=== PATIENT | male | born 1955 | race African-American/Black ===

== ENCOUNTER 2022-07-28 10:03 | Inpatient (IN) | payer MEDICARE, OTHER ==
[~2022-07-28] VITALS: Ht 188 cm; Wt 133.8 kg
[2022-07-28 13:37] LABS: BASOPHILS % 0.1 % (0.0-2.0); HEMATOCRIT. 44.7 % (42.0-52.0); HEMOGLOBIN. 15.1 g/dL (14.0-18.0); LYMPHOCYTES % 14.1 % (20.0-50.0); MEAN CORPUSCULAR HEMOGLOBIN 30.8 pg (28.0-32.0); MEAN CORPUSCULAR VOLUME 91.4 fL (80.0-94.0); MEAN PLATELET VOLUME 9.3 fl (7.4-10.4); MONOCYTES % 6.9 % (2.0-8.0); NEUTROPHILS % 78.9 % (40.0-76.0); PLATELET 169 x1000/uL (130-400); RED BLOOD CELL COUNT 4.89 mill/uL (4.7-6.1); RED CELL DISTRIBUTION WIDTH 14.6 % (11.6-14.6)
[2022-07-28 13:46] LABS: CHLORIDE 105 mEq/L (98-107)
[2022-07-28] MEDS ORDERED: CEFTRIAXONE 1 G PREMIX 50 ML IV ONE (15:30)
[2022-07-28] MEDS ORDERED: AZITHROMYCIN 500 MG in DEXT 5% WATER 250 ML IV SCH (16:30)
[2022-07-28 17:00] LABS: BG BASE EXCESS 1.4 mmol/L (-2.0-2.0); BG DEOXYHEMOGLOBIN 13.6 % (0.0-5.0); BG FRACTION INSPIRED OXYGEN 36; BG HCO3 ACT 24.2 mmol/L (22.0-26.0); BG METHEMOGLOBIN 0.3 % (0.0-1.5); BG OXYGEN SATURATION 86.2 % (92.0-98.5); BG OXYHEMOGLOBIN 85.1 % (94.0-97.0); BG PCO2 33.1 mmHg (35.0-45.0); BG PH 7.481 (7.350-7.450); BG PO2 48.4 mmHg (75.0-100.0); BG SAMPLE SITE LEFT RADIAL; BG TOTAL HEMOGLOBIN 15.6 g/dL (12.0-18.0); BG VENT MODE NASAL CANNULA
[2022-07-28] MEDS ORDERED: AZITHROMYCIN 500MG/250ML 250 ML IV NR (17:00)
[2022-07-29 10:45] VITALS: BP 135/53
[2022-07-29] MEDS ORDERED: PNEUMOCOCCAL VACCINE IM ONE (11:15)
[2022-07-29] MEDS ORDERED: INFLUENZA VACCINE IM ONE (11:15)
[2022-07-29 12:00] VITALS: BP 132/55
[2022-07-29] MEDS ORDERED: IPRATROPIUM/ALBUTEROL 0.5-3(2.5)MG/3ML NEB HHN SCH (13:30)
[2022-07-29] MEDS ORDERED: ONDANSETRON HCL 4MG/2ML INJ IV PRN (13:30)
[2022-07-29 16:00] VITALS: BP 114/61
[2022-07-29 17:50] LABS: CREATINE KINASE MB FRACTION 2.9 ng/mL (0.5-3.6)
[2022-07-29 20:00] VITALS: BP 131/60
[2022-07-29] MEDS: ENOXAPARIN 30MG/0.3ML SYR SUBCUT SCH (20:36)
[2022-07-29 23:32] LABS: CREATINE KINASE MB FRACTION 1.3 ng/mL (0.5-3.6)
[2022-07-30] VITALS: BP 108/54
[2022-07-30] MEDS: IPRATROPIUM BROMIDE (0.02%) 0.5MG/2.5ML NEB HHN SCH ×5 (00:39→20:05)
[2022-07-30] MEDS: ALBUTEROL (0.083%) 2.5MG/3ML NEB HHN SCH ×5 (00:40→20:05)
[2022-07-30 04:00] VITALS: BP 101/66
[2022-07-30 06:41] LABS: BASOPHILS % 0.4 % (0.0-2.0); EOSINOPHILS % 0.3 % (0.0-5.0); HEMATOCRIT. 39.1 % (42.0-52.0); HEMOGLOBIN. 13.7 g/dL (14.0-18.0); LYMPHOCYTES % 13.9 % (20.0-50.0); MEAN CORPUSCULAR HEMOGLOBIN 31.3 pg (28.0-32.0); MEAN CORPUSCULAR VOLUME 89.6 fL (80.0-94.0); MEAN PLATELET VOLUME 9.5 fl (7.4-10.4); MONOCYTES % 3.8 % (2.0-8.0); NEUTROPHILS % 81.6 % (40.0-76.0); PLATELET 156 x1000/uL (130-400); RED BLOOD CELL COUNT 4.37 mill/uL (4.7-6.1); RED CELL DISTRIBUTION WIDTH 14.7 % (11.6-14.6)
[2022-07-30 08:00] VITALS: BP 119/62
[2022-07-30 08:32] LABS: CHLORIDE 111 mEq/L (98-107)
[2022-07-30] MEDS: ENOXAPARIN 30MG/0.3ML SYR SUBCUT SCH ×2 (09:17→20:44)
[2022-07-30 12:00] VITALS: BP 116/63
[2022-07-30 15:49] VITALS: BP 132/79
[2022-07-30 20:00] VITALS: BP 132/67
[2022-07-31] VITALS: BP 132/80
[2022-07-31] MEDS: ALBUTEROL (0.083%) 2.5MG/3ML NEB HHN SCH ×6 (01:51→19:57)
[2022-07-31] MEDS: IPRATROPIUM BROMIDE (0.02%) 0.5MG/2.5ML NEB HHN SCH ×6 (01:51→19:57)
[2022-07-31 04:00] VITALS: BP 145/70
[2022-07-31 08:00] VITALS: BP 116/57
[2022-07-31] MEDS: ENOXAPARIN 30MG/0.3ML SYR SUBCUT SCH ×2 (09:26→22:00)
[2022-07-31 12:00] VITALS: BP 147/59
[2022-07-31] MEDS ORDERED: LACTULOSE 20G/30ML UDC PO NR (14:00)
[2022-07-31 16:00] VITALS: BP 132/61
[2022-07-31] MEDS: LEVOFLOXACIN 750MG PREMIX 150 ML IV SCH (16:45)
[2022-07-31 20:00] VITALS: BP 136/79
[2022-07-31] MEDS: ACETAMINOPHEN 325MG TABLET PO PRN (22:00)
[2022-08-01] VITALS: BP 118/72
[2022-08-01] MEDS: ALBUTEROL (0.083%) 2.5MG/3ML NEB HHN SCH ×6 (00:16→21:26)
[2022-08-01] MEDS: IPRATROPIUM BROMIDE (0.02%) 0.5MG/2.5ML NEB HHN SCH ×6 (00:16→21:26)
[2022-08-01 04:00] VITALS: BP 146/62
[2022-08-01 06:59] LABS: CHLORIDE 103 mEq/L (98-107)
[2022-08-01 07:02] LABS: BASOPHILS % 0.3 % (0.0-2.0); EOSINOPHILS % 1.9 % (0.0-5.0); HEMATOCRIT. 35.8 % (42.0-52.0); HEMOGLOBIN. 12.3 g/dL (14.0-18.0); LYMPHOCYTES % 13.8 % (20.0-50.0); MEAN CORPUSCULAR HEMOGLOBIN 31.3 pg (28.0-32.0); MEAN CORPUSCULAR VOLUME 90.8 fL (80.0-94.0); MEAN PLATELET VOLUME 8.8 fl (7.4-10.4); MONOCYTES % 6.8 % (2.0-8.0); NEUTROPHILS % 77.2 % (40.0-76.0); PLATELET 179 x1000/uL (130-400); RED BLOOD CELL COUNT 3.94 mill/uL (4.7-6.1); RED CELL DISTRIBUTION WIDTH 14.7 % (11.6-14.6)
[2022-08-01 08:00] VITALS: BP 151/80
[2022-08-01] MEDS: ENOXAPARIN 30MG/0.3ML SYR SUBCUT SCH ×2 (08:48→22:24)
[2022-08-01 12:00] VITALS: BP 141/74
[2022-08-01 12:11] LABS: BG BASE EXCESS 3.4 mmol/L (-2.0-2.0); BG CARBOXYHEMOGLOBIN 0.6 % (0.5-1.5); BG DEOXYHEMOGLOBIN 13.9 % (0.0-5.0); BG FRACTION INSPIRED OXYGEN 21; BG HCO3 ACT 26.9 mmol/L (22.0-26.0); BG OXYHEMOGLOBIN 85.5 % (94.0-97.0); BG PCO2 36.9 mmHg (35.0-45.0); BG PO2 47.5 mmHg (75.0-100.0); BG SAMPLE SITE RIGHT RADIAL; BG TOTAL HEMOGLOBIN 13.2 g/dL (12.0-18.0); BG VENT MODE ROOM AIR
[2022-08-01] MEDS: LEVOFLOXACIN 750MG PREMIX 150 ML IV SCH (14:50)
[2022-08-01] MEDS ORDERED: CEFTRIAXONE 1 G PREMIX 50 ML IV SCH (15:30)
[2022-08-01 16:00] VITALS: BP 149/85
[2022-08-01] MEDS ORDERED: SODIUM CHLORIDE 10% FOR INH 15ML VIAL NEB INH PRN (17:30)
[2022-08-01] MEDS: CEFTRIAXONE 1,000 MG in DEXTROSE 5% WATER 50 ML IV SCH (17:55)
[2022-08-01 20:00] VITALS: BP 146/86
[2022-08-01] MEDS: DOXYCYCLINE HYCLATE 100MG CAPSULE PO SCH (22:24)
[2022-08-01] MEDS: FAMOTIDINE 20MG TABLET PO SCH (22:24)
[2022-08-01] MEDS: ACETAMINOPHEN 325MG TABLET PO PRN (22:25)
[2022-08-02] VITALS: BP 127/67
[2022-08-02] MEDS: ALBUTEROL (0.083%) 2.5MG/3ML NEB HHN SCH ×6 (01:20→20:29)
[2022-08-02] MEDS: IPRATROPIUM BROMIDE (0.02%) 0.5MG/2.5ML NEB HHN SCH ×6 (01:21→20:29)
[2022-08-02 04:00] VITALS: BP 131/78
[2022-08-02 05:41] LABS: CHLORIDE 104 mEq/L (98-107)
[2022-08-02 05:44] LABS: BASOPHILS % 0.5 % (0.0-2.0); EOSINOPHILS % 2.1 % (0.0-5.0); HEMATOCRIT. 36.5 % (42.0-52.0); HEMOGLOBIN. 12.3 g/dL (14.0-18.0); LYMPHOCYTES % 17.3 % (20.0-50.0); MEAN CORPUSCULAR HEMOGLOBIN 30.5 pg (28.0-32.0); MEAN CORPUSCULAR VOLUME 90.6 fL (80.0-94.0); MEAN PLATELET VOLUME 8.5 fl (7.4-10.4); MONOCYTES % 9.8 % (2.0-8.0); NEUTROPHILS % 70.3 % (40.0-76.0); PLATELET 183 x1000/uL (130-400); RED BLOOD CELL COUNT 4.03 mill/uL (4.7-6.1); RED CELL DISTRIBUTION WIDTH 14.4 % (11.6-14.6)
[2022-08-02 05:59] LABS: CREATINE KINASE 214 IU/L (39-308)
[2022-08-02 06:04] LABS: HEPATITIS B SURFACE ANTIGEN NEGATIVE
[2022-08-02 08:00] VITALS: BP 142/71
[2022-08-02] MEDS: DOXYCYCLINE HYCLATE 100MG CAPSULE PO SCH ×2 (08:32→21:19)
[2022-08-02] MEDS: ENOXAPARIN 30MG/0.3ML SYR SUBCUT SCH ×2 (08:32→21:20)
[2022-08-02 12:00] VITALS: BP 145/78
[2022-08-02] MEDS: ACETAMINOPHEN 325MG TABLET PO PRN ×2 (12:47→17:35)
[2022-08-02 13:07] LABS: HIV SCREEN 4G Non Reactive (Non Reactive)
[2022-08-02 16:00] VITALS: BP 129/93
[2022-08-02] MEDS: CEFTRIAXONE 1,000 MG in DEXTROSE 5% WATER 50 ML IV SCH (16:01)
[2022-08-02 20:00] VITALS: BP 136/83
[2022-08-02] MEDS: FAMOTIDINE 20MG TABLET PO SCH (21:19)
[2022-08-03] VITALS: BP 149/88
[2022-08-03] MEDS: IPRATROPIUM BROMIDE (0.02%) 0.5MG/2.5ML NEB HHN SCH ×4 (00:21→14:23)
[2022-08-03] MEDS: ALBUTEROL (0.083%) 2.5MG/3ML NEB HHN SCH ×4 (00:21→14:23)
[2022-08-03 04:00] VITALS: BP 143/78
[2022-08-03 05:08] LABS: QFT MITOGEN VALUE 3.71 IU/mL (.); QFT TB GOLD PLUS Negative (Negative); QFT TB1 AG VALUE 0.05 IU/mL (.)
[2022-08-03 08:00] VITALS: BP 130/71
[2022-08-03 08:05] LABS: HEMATOCRIT. 34.6 % (42.0-52.0); HEMOGLOBIN. 11.8 g/dL (14.0-18.0); MEAN CORPUSCULAR HEMOGLOBIN 30.4 pg (28.0-32.0); MEAN CORPUSCULAR VOLUME 89.4 fL (80.0-94.0); MEAN PLATELET VOLUME 8.6 fl (7.4-10.4); PLATELET 217 x1000/uL (130-400); RED BLOOD CELL COUNT 3.87 mill/uL (4.7-6.1); RED CELL DISTRIBUTION WIDTH 14.9 % (11.6-14.6)
[2022-08-03 08:22] LABS: CHLORIDE 106 mEq/L (98-107)
[2022-08-03] MEDS: ENOXAPARIN 30MG/0.3ML SYR SUBCUT SCH ×2 (10:05→21:41)
[2022-08-03] MEDS: DOXYCYCLINE HYCLATE 100MG CAPSULE PO SCH ×2 (10:05→21:41)
[2022-08-03 12:00] VITALS: BP 119/79
[2022-08-03 13:06] LABS: ANTI-NUCLEAR ANTIBODIES DIRECT Negative (Negative)
[2022-08-03 16:00] VITALS: BP 141/89
[2022-08-03] MEDS: CEFTRIAXONE 1,000 MG in DEXTROSE 5% WATER 50 ML IV SCH (17:11)
[2022-08-03 20:00] VITALS: BP 142/80
[2022-08-03] MEDS ORDERED: IPRATROPIUM BROMIDE (0.02%) 0.5MG/2.5ML NEB ONE (20:00)
[2022-08-03] MEDS ORDERED: ALBUTEROL (0.083%) 2.5MG/3ML NEB ONE (20:00)
[2022-08-03] MEDS: FAMOTIDINE 20MG TABLET PO SCH (21:41)
[2022-08-03] MEDS ORDERED: ALBUTEROL (0.083%) 2.5MG/3ML NEB HHN NR (23:00)
[2022-08-04] VITALS: BP 132/75
[2022-08-04 00:56] LABS: PLATELET ESTIMATE NORMAL
[2022-08-04 04:00] VITALS: BP 157/76
[2022-08-04 06:55] LABS: BASOPHILS % 0.5 % (0.0-2.0); EOSINOPHILS % 4.1 % (0.0-5.0); HEMATOCRIT. 33.6 % (42.0-52.0); HEMOGLOBIN. 11.4 g/dL (14.0-18.0); LYMPHOCYTES % 18.9 % (20.0-50.0); MEAN CORPUSCULAR HEMOGLOBIN 30.4 pg (28.0-32.0); MEAN CORPUSCULAR VOLUME 89.8 fL (80.0-94.0); MEAN PLATELET VOLUME 8.4 fl (7.4-10.4); MONOCYTES % 7.8 % (2.0-8.0); NEUTROPHILS % 68.7 % (40.0-76.0); PLATELET 231 x1000/uL (130-400); RED BLOOD CELL COUNT 3.74 mill/uL (4.7-6.1); RED CELL DISTRIBUTION WIDTH 14.7 % (11.6-14.6)
[2022-08-04 07:18] LABS: CHLORIDE 106 mEq/L (98-107)
[2022-08-04 08:19] VITALS: BP 123/78
[2022-08-04] MEDS: DOXYCYCLINE HYCLATE 100MG CAPSULE PO SCH ×2 (08:35→20:21)
[2022-08-04] MEDS: ENOXAPARIN 30MG/0.3ML SYR SUBCUT SCH ×2 (08:36→20:22)
[2022-08-04 09:06] LABS: ANGIOTENSION CONVERTING ENZYME 28 U/L (14-82)
[2022-08-04 11:27] VITALS: BP 124/75
[2022-08-04 16:00] VITALS: BP 137/73
[2022-08-04] MEDS: CEFTRIAXONE 1,000 MG in DEXTROSE 5% WATER 50 ML IV SCH (16:47)
[2022-08-04 20:00] VITALS: BP 143/74
[2022-08-04] MEDS: FAMOTIDINE 20MG TABLET PO SCH (20:21)
[2022-08-05] VITALS: BP 137/69
[2022-08-05 04:00] VITALS: BP 130/78
[2022-08-05 06:13] LABS: BASOPHILS % 0.5 % (0.0-2.0); HEMOGLOBIN. 11.3 g/dL (14.0-18.0); LYMPHOCYTES % 25.1 % (20.0-50.0); MEAN CORPUSCULAR VOLUME 90.5 fL (80.0-94.0); MEAN PLATELET VOLUME 8.7 fl (7.4-10.4); MONOCYTES % 5.5 % (2.0-8.0); NEUTROPHILS % 64.9 % (40.0-76.0); PLATELET 274 x1000/uL (130-400); RED BLOOD CELL COUNT 3.65 mill/uL (4.7-6.1); RED CELL DISTRIBUTION WIDTH 14.9 % (11.6-14.6)
[2022-08-05 06:33] LABS: CHLORIDE 106 mEq/L (98-107)
[2022-08-05] MEDS: DOXYCYCLINE HYCLATE 100MG CAPSULE PO SCH ×2 (08:17→20:19)
[2022-08-05] MEDS: ENOXAPARIN 30MG/0.3ML SYR SUBCUT SCH ×2 (08:17→20:19)
[2022-08-05 08:33] VITALS: BP 125/71
[2022-08-05 12:00] VITALS: BP 131/77
[2022-08-05] MEDS: LEVOFLOXACIN 500MG TABLET PO SCH (15:04)
[2022-08-05 16:00] VITALS: BP 115/73
[2022-08-05] MEDS: FLUCONAZOLE 400 MG/200 ML IV SCH (16:16)
[2022-08-05 17:06] LABS: ANTI-MYELOPEROXIDASE AB < 0.2 units (0.0-0.9); ANTI-PROTEINASE 3 ABS < 0.2 units (0.0-0.9)
[2022-08-05 20:00] VITALS: BP 138/85
[2022-08-05] MEDS: FAMOTIDINE 20MG TABLET PO SCH (20:19)
[2022-08-06] VITALS: BP 124/81
[2022-08-06 04:00] VITALS: BP 122/72
[2022-08-06 08:00] VITALS: BP 118/75
[2022-08-06] MEDS: DOXYCYCLINE HYCLATE 100MG CAPSULE PO SCH ×2 (08:32→21:09)
[2022-08-06] MEDS: LEVOFLOXACIN 500MG TABLET PO SCH (08:32)
[2022-08-06] MEDS: ENOXAPARIN 30MG/0.3ML SYR SUBCUT SCH ×2 (08:33→21:09)
[2022-08-06 12:00] VITALS: BP 111/72
[2022-08-06 13:10] LABS: ATYPICAL P-ANCA <1:20 titer (Neg:<1:20); CYTOPLASMIC C-ANCA <1:20 titer (Neg:<1:20); PERINUCLEAR P-ANCA <1:20 titer (Neg:<1:20)
[2022-08-06 15:05] LABS: CHLORIDE 106 mEq/L (98-107)
[2022-08-06] MEDS: FLUCONAZOLE 400 MG/200 ML IV SCH (15:13)
[2022-08-06 16:00] VITALS: BP 144/80
[2022-08-06 20:00] VITALS: BP 131/75
[2022-08-06] MEDS: FAMOTIDINE 20MG TABLET PO SCH (21:09)
[2022-08-07] VITALS (7 sets, daily range): BP systolic 119–148; BP diastolic 74–86
[2022-08-07] MEDS: LEVOFLOXACIN 500MG TABLET PO SCH (08:08)
[2022-08-07] MEDS: ENOXAPARIN 30MG/0.3ML SYR SUBCUT SCH ×2 (08:08→20:47)
[2022-08-07] MEDS: DOXYCYCLINE HYCLATE 100MG CAPSULE PO SCH ×2 (08:08→20:47)
[2022-08-07 09:05] LABS: CHLORIDE 104 mEq/L (98-107)
[2022-08-07] MEDS ORDERED: FLUCONAZOLE 400MG/200ML BAG 200 ML IV SCH ×2 (16:00→18:00)
[2022-08-07] MEDS: FAMOTIDINE 20MG TABLET PO SCH (20:47)
[2022-08-08] VITALS: BP 149/79
[2022-08-08 04:00] VITALS: BP 106/75
[2022-08-08 08:00] VITALS: BP 125/73
[2022-08-08] MEDS: LEVOFLOXACIN 500MG TABLET PO SCH (08:45)
[2022-08-08] MEDS: ENOXAPARIN 30MG/0.3ML SYR SUBCUT SCH (08:45)
[2022-08-08] MEDS: DOXYCYCLINE HYCLATE 100MG CAPSULE PO SCH (08:45)
[2022-08-08 12:00] VITALS: BP 116/68
[2022-08-08] MEDS ORDERED: FLUC200T51 MT (14:33)
[2022-08-08] MEDS ORDERED: DOXY100C5 MT (14:33)
[2022-08-08] MEDS ORDERED: ALBU18HF2 IH (14:33)
[2022-08-08] MEDS ORDERED: FLUT1DIS3 INH (14:34)
[2022-08-08 15:10] VITALS: BP 116/68
[2022-08-08] MEDS ORDERED: INFLUENZA VACCINE 05/PF 0.5 ML SYRINGE IM ONE (16:45)
[2022-08-08] MEDS ORDERED: PNEUMOCOCCAL 23-VAL P-SAC VAC 0.5 ML IM ONE (16:45)
== END 2022-08-08 17:55 | disposition home or self-care (01) | DRG 193 ==
LOC: EDBD 10:03 → ER 10:35 → EDBEDREQ 18:05 → MICUSO 18:06 → 8WST 07-29 10:43
PROVIDERS: ADMIT Internal Medicine; ATTEND Internal Medicine
DX: J18.9 Pneumonia, unspecified organism (principal); J96.01 Acute respiratory failure with hypoxia; E66.9 Obesity, unspecified; K80.20 Calculus of gallbladder without cholecystitis without obstruction; D64.9 Anemia, unspecified; D70.9 Neutropenia, unspecified; Z20.822 Contact with and (suspected) exposure to COVID-19; D69.6 Thrombocytopenia, unspecified; K57.90 Diverticulosis of intestine, part unspecified, without perforation or abscess without bleeding; R74.01 Elevation of levels of liver transaminase levels; N20.0 Calculus of kidney; N40.1 Benign prostatic hyperplasia with lower urinary tract symptoms; Z68.37 Body mass index [BMI] 37.0-37.9, adult; Z79.899 Other long term (current) drug therapy
CPT/HCPCS: 36415; 36600; 71045; 71250; 74176; 76705; 80048; 80053; 80061; 80076; 82164; 82375; 82550; 82553; 82805; 83036; 83520; 83615; 83880; 84145; 84153; 84484; 85025; 85379; 85651; 86038; 86256; 86430; 86480; 86635; 86698; 86705; 86709; 86738; 86803; 87116; 87340; 87389; 87426; 87449; 87804; 87899; 90686; 90732; 93005; 93306; 93970; 94640; 97116; 97162; 99285; C9803; J0456; J0696; J1450; J1650; J1956; J2405; J7060; J7131; U0003; U0005; G0103